=== PATIENT | male | born 1955 | race Caucasian/White ===

== ENCOUNTER 2016-05-30 14:52 | Outpatient (CLI) ==
[2016-05-30 15:11] LABS: HEMATOCRIT 28.7 % (42.0-52.0); HEMOGLOBIN 9.1 g/dl (14.0-18.0)
--- NOTE | 2016-05-30 16:11 | DI ---
EXAM: PA and lateral views of the chest HISTORY: Lung transplant COMPARISON: Chest x-ray 03/06/2016 with numerous priors dating back to 12/08/2013 FINDINGS: The cardiomediastinal silhouette is normal with coronary stent in place. Central line is unchanged with ventral surgical wires stable. There is no pneumothorax or pleural effusion. There i s no consolidation, nodule or mass. There is mild hyperinflation with bibasilar scarring which is st able. Surgical suture lines are noted in the bilateral lung bases. Right axillary stent is unchang ed. The osseous structures are unremarkable. IMPRESSION: No acute cardiopulmonary process or significant interval change.
== END 2016-05-30 14:53 | disposition home or self-care (01) ==
LOC: RAD 14:52
PROVIDERS: ATTEND Internal Medicine Pulmonary Disease
DX: Z94.2 Lung transplant status (principal); T86.819 Unspecified complication of lung transplant; N28.9 Disorder of kidney and ureter, unspecified
CPT/HCPCS: 36415; 85014; 85018

== ENCOUNTER 2016-06-11 09:49 | Outpatient (CLI) ==
[2016-06-11 10:32] LABS: CHOL/HDL RATIO 3.2 (4.5-6.4)
== END 2016-06-11 09:50 | disposition home or self-care (01) ==
LOC: LAB 09:49
PROVIDERS: ATTEND Internal Medicine Cardiovascular Disease
DX: E78.5 Hyperlipidemia, unspecified (principal); I10 Essential (primary) hypertension
CPT/HCPCS: 36415; 80061

== ENCOUNTER 2016-06-29 09:33 | Outpatient (CLI) ==
[2016-06-29 09:41] LABS: HEMATOCRIT 22.1 % (42.0-52.0); HEMOGLOBIN 7.4 g/dl (14.0-18.0)
== END 2016-06-29 09:34 | disposition home or self-care (01) ==
LOC: NONPT 09:33
PROVIDERS: ATTEND Internal Medicine Nephrology
DX: N18.9 Chronic kidney disease, unspecified (principal); D63.1 Anemia in chronic kidney disease
CPT/HCPCS: 85014; 85018

== ENCOUNTER 2016-08-07 08:45 | Outpatient (CLI) ==
[2016-08-07 09:06] LABS: HEMATOCRIT 35.1 % (42.0-52.0); HEMOGLOBIN 10.8 g/dl (14.0-18.0); MEAN CORPUSCULAR HEMOGLOBIN 32.2 pg (27.0-31.0); MEAN CORPUSCULAR HGB CONC 30.8 (31.8-35.4); MEAN CORPUSCULAR VOLUME 104.8 fl (80.0-94.0); PLATELET COUNT 174 10^3/uL (140-440); RED BLOOD COUNT 3.35 10^6/ul (4.70-6.10); WHITE BLOOD COUNT 11.24 K/ul (4.2-10.2)
[2016-08-07 09:22] LABS: ANISOCYTOSIS 1+ (NOT PRESENT)
[2016-08-07 09:35] LABS: ALBUMIN 3.8 g/dL (3.4-5.0); ALBUMIN/GLOBULIN RATIO 1.12; ANION GAP 17.2; BILIRUBIN,TOTAL 0.59 mg/dL (0.00-1.20); BUN/CREATININE RATIO 38.04; CALCIUM 9.7 mg/dL (8.2-10.2); CREATININE 0.92 mg/dL (0.60-1.10); POTASSIUM 5.2 mmol/L (3.5-5.1); TOTAL PROTEIN 7.2 g/dL (5.8-8.1)
== END 2016-08-07 08:46 | disposition home or self-care (01) ==
LOC: LAB 08:45
PROVIDERS: ATTEND Internal Medicine Nephrology
DX: Z94.0 Kidney transplant status (principal); Z79.899 Other long term (current) drug therapy; E78.5 Hyperlipidemia, unspecified
CPT/HCPCS: 36415; 80053; 80061; 80197; 84100; 85007; 85025

== ENCOUNTER 2016-08-13 08:15 | Outpatient (CLI) ==
[2016-08-13 08:36] LABS: HEMATOCRIT 32.2 % (42.0-52.0); HEMOGLOBIN 10.3 g/dl (14.0-18.0); MEAN CORPUSCULAR HEMOGLOBIN 32.8 pg (27.0-31.0); MEAN CORPUSCULAR VOLUME 102.5 fl (80.0-94.0); PLATELET COUNT 185 10^3/uL (140-440); RED BLOOD COUNT 3.14 10^6/ul (4.70-6.10); WHITE BLOOD COUNT 12.31 K/ul (4.2-10.2)
[2016-08-13 08:52] LABS: ANISOCYTOSIS NOT PRESENT (NOT PRESENT)
[2016-08-13 08:53] LABS: ALBUMIN 3.6 g/dL (3.4-5.0); ANION GAP 15.1; CALCIUM 10.1 mg/dL (8.2-10.2); CREATININE 0.88 mg/dL (0.60-1.10); PHOSPHORUS 3.6 mg/dL (2.3-3.7); POTASSIUM 4.1 mmol/L (3.5-5.1)
== END 2016-08-13 08:16 | disposition home or self-care (01) ==
LOC: LAB 08:15
PROVIDERS: ATTEND Internal Medicine Nephrology
DX: Z94.0 Kidney transplant status (principal); Z79.899 Other long term (current) drug therapy; E78.5 Hyperlipidemia, unspecified
CPT/HCPCS: 36415; 80069; 80197; 85007; 85025; 87799

== ENCOUNTER 2016-08-27 07:28 | Outpatient (CLI) | payer OTHER ==
[2016-08-27 07:45] LABS: BASOPHILS # (AUTO) 0.1 K/uL (0-0.2); BASOPHILS % (AUTO) 0.7 % (0.0-3.0); EOSINOPHILS # (AUTO) 0.1 K/ul (0.0-0.7); EOSINOPHILS % (AUTO) 1.1 % (0.0-7.0); HEMATOCRIT 35.6 % (42.0-52.0); HEMOGLOBIN 11.5 g/dl (14.0-18.0); IMMATURE GRANULOCYTE % (AUTO) 5.1 % (0.0-5.0); LYMPHOCYTES # (AUTO) 0.6 K/uL (0.60-3.4); LYMPHOCYTES % (AUTO) 4.9 (10.0-50.0); MEAN CORPUSCULAR HEMOGLOBIN 33.6 pg (27.0-31.0); MEAN CORPUSCULAR HGB CONC 32.3 (31.8-35.4); MEAN CORPUSCULAR VOLUME 104.1 fl (80.0-94.0); MONOCYTES # (AUTO) 1.2 K/uL (0.4-2.0); MONOCYTES % (AUTO) 10.3 (0-10); NEUTROPHILS % (AUTO) 77.9; PLATELET COUNT 180 10^3/uL (140-440); RED BLOOD COUNT 3.42 10^6/ul (4.70-6.10); WHITE BLOOD COUNT 11.55 K/ul (4.2-10.2)
[2016-08-27 08:15] LABS: ALBUMIN 3.9 g/dL (3.4-5.0); ANION GAP 15.2; BUN/CREATININE RATIO 30.09; CALCIUM 9.6 mg/dL (8.2-10.2); CREATININE 1.03 mg/dL (0.60-1.10); PHOSPHORUS 3.6 mg/dL (2.3-3.7)
[2016-08-27 08:33] LABS: POTASSIUM 5.2 mmol/L (3.5-5.1)
== END 2016-08-27 07:29 | disposition home or self-care (01) ==
LOC: LAB 07:28
PROVIDERS: ATTEND Internal Medicine Nephrology
DX: Z94.0 Kidney transplant status (principal); Z79.899 Other long term (current) drug therapy; E78.5 Hyperlipidemia, unspecified
CPT/HCPCS: 36415; 80069; 80197; 85025

== ENCOUNTER 2016-09-03 08:04 | Outpatient (CLI) ==
[2016-09-03 08:19] LABS: HEMATOCRIT 34.9 % (42.0-52.0); HEMOGLOBIN 11.6 g/dl (14.0-18.0); MEAN CORPUSCULAR HEMOGLOBIN 34.3 pg (27.0-31.0); MEAN CORPUSCULAR HGB CONC 33.2 (31.8-35.4); MEAN CORPUSCULAR VOLUME 103.3 fl (80.0-94.0); PLATELET COUNT 187 10^3/uL (140-440); RED BLOOD COUNT 3.38 10^6/ul (4.70-6.10)
[2016-09-03 08:35] LABS: ALBUMIN 3.9 g/dL (3.4-5.0); ANION GAP 18.4; BUN/CREATININE RATIO 29.78; CALCIUM 9.6 mg/dL (8.2-10.2); CREATININE 0.94 mg/dL (0.60-1.10); PHOSPHORUS 3.7 mg/dL (2.3-3.7); POTASSIUM 5.4 mmol/L (3.5-5.1)
[2016-09-03 08:39] LABS: ANISOCYTOSIS NOT PRESENT (NOT PRESENT)
[2016-09-03 08:41] LABS: SPHEROCYTES 2+ (NOT PRESENT)
== END 2016-09-03 08:05 | disposition home or self-care (01) ==
LOC: LAB 08:04
PROVIDERS: ATTEND Internal Medicine Nephrology
DX: Z94.0 Kidney transplant status (principal); Z79.899 Other long term (current) drug therapy; E78.5 Hyperlipidemia, unspecified
CPT/HCPCS: 36415; 80069; 80197; 85007; 85025

== ENCOUNTER 2016-09-10 08:51 | Outpatient (CLI) | payer OTHER ==
[2016-09-10 09:23] LABS: BASOPHILS # (AUTO) 0.1 K/uL (0-0.2); BASOPHILS % (AUTO) 0.5 % (0.0-3.0); EOSINOPHILS # (AUTO) 0.1 K/ul (0.0-0.7); HEMATOCRIT 36.7 % (42.0-52.0); IMMATURE GRANULOCYTE % (AUTO) 4.1 % (0.0-5.0); LYMPHOCYTES # (AUTO) 0.4 K/uL (0.60-3.4); LYMPHOCYTES % (AUTO) 4.4 (10.0-50.0); MEAN CORPUSCULAR HEMOGLOBIN 33.9 pg (27.0-31.0); MEAN CORPUSCULAR HGB CONC 32.7 (31.8-35.4); MEAN CORPUSCULAR VOLUME 103.7 fl (80.0-94.0); MONOCYTES # (AUTO) 1.1 K/uL (0.4-2.0); MONOCYTES % (AUTO) 10.8 (0-10); NEUTROPHILS # (AUTO) 7.8 K/ul (2.0-6.9); NEUTROPHILS % (AUTO) 79.2; PLATELET COUNT 162 10^3/uL (140-440); RED BLOOD COUNT 3.54 10^6/ul (4.70-6.10)
[2016-09-10 09:40] LABS: ALBUMIN 3.9 g/dL (3.4-5.0); ANION GAP 14.2; BUN/CREATININE RATIO 31.03; CALCIUM 9.9 mg/dL (8.2-10.2); CREATININE 0.87 mg/dL (0.60-1.10); PHOSPHORUS 3.9 mg/dL (2.3-3.7); POTASSIUM 4.2 mmol/L (3.5-5.1)
== END 2016-09-10 08:52 | disposition home or self-care (01) ==
LOC: LAB 08:51
PROVIDERS: ATTEND Internal Medicine Nephrology
DX: Z94.0 Kidney transplant status (principal); Z79.899 Other long term (current) drug therapy; E78.5 Hyperlipidemia, unspecified
CPT/HCPCS: 36415; 80069; 80197; 85025

== ENCOUNTER 2016-09-19 09:05 | Outpatient (CLI) | payer OTHER ==
[2016-09-19 09:35] LABS: BASOPHILS # (AUTO) 0.1 K/uL (0-0.2); BASOPHILS % (AUTO) 0.6 % (0.0-3.0); EOSINOPHILS # (AUTO) 0.1 K/ul (0.0-0.7); EOSINOPHILS % (AUTO) 1.3 % (0.0-7.0); HEMATOCRIT 38.3 % (42.0-52.0); HEMOGLOBIN 12.5 g/dl (14.0-18.0); IMMATURE GRANULOCYTE % (AUTO) 4.6 % (0.0-5.0); LYMPHOCYTES # (AUTO) 0.4 K/uL (0.60-3.4); LYMPHOCYTES % (AUTO) 4.2 (10.0-50.0); MEAN CORPUSCULAR HEMOGLOBIN 34.3 pg (27.0-31.0); MEAN CORPUSCULAR HGB CONC 32.6 (31.8-35.4); MEAN CORPUSCULAR VOLUME 105.2 fl (80.0-94.0); MONOCYTES # (AUTO) 0.8 K/uL (0.4-2.0); MONOCYTES % (AUTO) 9.5 (0-10); NEUTROPHILS # (AUTO) 6.9 K/ul (2.0-6.9); NEUTROPHILS % (AUTO) 79.8; PLATELET COUNT 176 10^3/uL (140-440); RED BLOOD COUNT 3.64 10^6/ul (4.70-6.10); WHITE BLOOD COUNT 8.61 K/ul (4.2-10.2)
[2016-09-19 09:55] LABS: ALBUMIN 4.1 g/dL (3.4-5.0); ANION GAP 12.6; BUN/CREATININE RATIO 22.72; CREATININE 0.88 mg/dL (0.60-1.10); PHOSPHORUS 3.3 mg/dL (2.3-3.7); POTASSIUM 4.6 mmol/L (3.5-5.1)
== END 2016-09-19 09:06 | disposition home or self-care (01) ==
LOC: LAB 09:05
PROVIDERS: ATTEND Internal Medicine Nephrology
DX: Z94.0 Kidney transplant status (principal); Z79.899 Other long term (current) drug therapy; E78.5 Hyperlipidemia, unspecified
CPT/HCPCS: 36415; 80069; 80197; 85025; 87799

== ENCOUNTER 2016-09-24 08:37 | Outpatient (CLI) | payer OTHER ==
[2016-09-24 08:54] LABS: BASOPHILS % (AUTO) 0.4 % (0.0-3.0); EOSINOPHILS # (AUTO) 0.1 K/ul (0.0-0.7); EOSINOPHILS % (AUTO) 1.3 % (0.0-7.0); HEMATOCRIT 39.1 % (42.0-52.0); HEMOGLOBIN 12.8 g/dl (14.0-18.0); LYMPHOCYTES # (AUTO) 0.4 K/uL (0.60-3.4); LYMPHOCYTES % (AUTO) 4.5 (10.0-50.0); MEAN CORPUSCULAR HEMOGLOBIN 34.5 pg (27.0-31.0); MEAN CORPUSCULAR HGB CONC 32.7 (31.8-35.4); MEAN CORPUSCULAR VOLUME 105.4 fl (80.0-94.0); MONOCYTES # (AUTO) 0.8 K/uL (0.4-2.0); MONOCYTES % (AUTO) 8.5 (0-10); NEUTROPHILS % (AUTO) 81.3; PLATELET COUNT 169 10^3/uL (140-440); RED BLOOD COUNT 3.71 10^6/ul (4.70-6.10); WHITE BLOOD COUNT 9.78 K/ul (4.2-10.2)
[2016-09-24 09:13] LABS: ALBUMIN 4.1 g/dL (3.4-5.0); ANION GAP 13.8; BUN/CREATININE RATIO 26.88; CALCIUM 10.3 mg/dL (8.2-10.2); CREATININE 0.93 mg/dL (0.60-1.10); PHOSPHORUS 3.7 mg/dL (2.3-3.7); POTASSIUM 4.8 mmol/L (3.5-5.1)
== END 2016-09-24 08:38 | disposition home or self-care (01) ==
LOC: LAB 08:37
PROVIDERS: ATTEND Internal Medicine Nephrology
DX: Z94.0 Kidney transplant status (principal); Z79.899 Other long term (current) drug therapy; E78.5 Hyperlipidemia, unspecified
CPT/HCPCS: 36415; 80069; 80197; 85025

== ENCOUNTER 2016-10-01 08:08 | Outpatient (CLI) | payer OTHER ==
[2016-10-01 08:28] LABS: BASOPHILS # (AUTO) 0.1 K/uL (0-0.2); BASOPHILS % (AUTO) 0.8 % (0.0-3.0); EOSINOPHILS # (AUTO) 0.1 K/ul (0.0-0.7); EOSINOPHILS % (AUTO) 1.5 % (0.0-7.0); HEMATOCRIT 39.1 % (42.0-52.0); IMMATURE GRANULOCYTE % (AUTO) 5.1 % (0.0-5.0); LYMPHOCYTES # (AUTO) 0.5 K/uL (0.60-3.4); LYMPHOCYTES % (AUTO) 5.3 (10.0-50.0); MEAN CORPUSCULAR HEMOGLOBIN 34.8 pg (27.0-31.0); MEAN CORPUSCULAR HGB CONC 33.2 (31.8-35.4); MEAN CORPUSCULAR VOLUME 104.5 fl (80.0-94.0); NEUTROPHILS # (AUTO) 7.4 K/ul (2.0-6.9); NEUTROPHILS % (AUTO) 77.3; PLATELET COUNT 177 10^3/uL (140-440); RED BLOOD COUNT 3.74 10^6/ul (4.70-6.10)
[2016-10-01 08:43] LABS: ALBUMIN 4.1 g/dL (3.4-5.0); ANION GAP 15.2; BUN/CREATININE RATIO 26.73; CALCIUM 10.1 mg/dL (8.2-10.2); CREATININE 1.01 mg/dL (0.60-1.10); PHOSPHORUS 3.2 mg/dL (2.3-3.7); POTASSIUM 4.2 mmol/L (3.5-5.1)
== END 2016-10-01 08:09 | disposition home or self-care (01) ==
LOC: LAB 08:08
PROVIDERS: ATTEND Internal Medicine Nephrology
DX: Z94.0 Kidney transplant status (principal); Z79.899 Other long term (current) drug therapy; E78.5 Hyperlipidemia, unspecified
CPT/HCPCS: 36415; 80069; 80197; 85025

== ENCOUNTER 2016-10-15 08:00 | Outpatient (CLI) ==
[2016-10-15 08:18] LABS: BASOPHILS # (AUTO) 0.1 K/uL (0-0.2); BASOPHILS % (AUTO) 0.6 % (0.0-3.0); EOSINOPHILS # (AUTO) 0.1 K/ul (0.0-0.7); EOSINOPHILS % (AUTO) 1.6 % (0.0-7.0); HEMATOCRIT 40.2 % (42.0-52.0); HEMOGLOBIN 13.3 g/dl (14.0-18.0); IMMATURE GRANULOCYTE % (AUTO) 3.2 % (0.0-5.0); LYMPHOCYTES # (AUTO) 0.4 K/uL (0.60-3.4); LYMPHOCYTES % (AUTO) 4.1 (10.0-50.0); MEAN CORPUSCULAR HEMOGLOBIN 34.8 pg (27.0-31.0); MEAN CORPUSCULAR HGB CONC 33.1 (31.8-35.4); MEAN CORPUSCULAR VOLUME 105.2 fl (80.0-94.0); MONOCYTES # (AUTO) 0.9 K/uL (0.4-2.0); NEUTROPHILS # (AUTO) 7.1 K/ul (2.0-6.9); NEUTROPHILS % (AUTO) 80.5; PLATELET COUNT 160 10^3/uL (140-440); RED BLOOD COUNT 3.82 10^6/ul (4.70-6.10); WHITE BLOOD COUNT 8.84 K/ul (4.2-10.2)
[2016-10-15 08:42] LABS: ALBUMIN/GLOBULIN RATIO 1.33; BILIRUBIN,TOTAL 0.3 mg/dL (0.00-1.20); BUN/CREATININE RATIO 24.44; CALCIUM 9.8 mg/dL (8.2-10.2); CHOL/HDL RATIO 5.2 (4.5-6.4); CREATININE 0.9 mg/dL (0.60-1.10); PHOSPHORUS 3.5 mg/dL (2.3-3.7)
== END 2016-10-15 08:01 | disposition home or self-care (01) ==
LOC: LAB 08:00
PROVIDERS: ATTEND Internal Medicine Nephrology
DX: Z94.0 Kidney transplant status (principal); Z79.899 Other long term (current) drug therapy; E78.5 Hyperlipidemia, unspecified; E10.65 Type 1 diabetes mellitus with hyperglycemia
CPT/HCPCS: 36415; 80053; 80061; 80197; 83036; 84100; 85025; 87799

== ENCOUNTER 2016-10-29 07:52 | Outpatient (CLI) ==
[2016-10-29 08:09] LABS: BASOPHILS % (AUTO) 0.5 % (0.0-3.0); EOSINOPHILS # (AUTO) 0.1 K/ul (0.0-0.7); EOSINOPHILS % (AUTO) 1.4 % (0.0-7.0); HEMATOCRIT 39.4 % (42.0-52.0); HEMOGLOBIN 12.8 g/dl (14.0-18.0); IMMATURE GRANULOCYTE % (AUTO) 2.6 % (0.0-5.0); LYMPHOCYTES # (AUTO) 0.4 K/uL (0.60-3.4); LYMPHOCYTES % (AUTO) 4.3 (10.0-50.0); MEAN CORPUSCULAR HEMOGLOBIN 34.6 pg (27.0-31.0); MEAN CORPUSCULAR HGB CONC 32.5 (31.8-35.4); MEAN CORPUSCULAR VOLUME 106.5 fl (80.0-94.0); MONOCYTES # (AUTO) 0.9 K/uL (0.4-2.0); MONOCYTES % (AUTO) 10.2 (0-10); NEUTROPHILS # (AUTO) 6.8 K/ul (2.0-6.9); PLATELET COUNT 158 10^3/uL (140-440); WHITE BLOOD COUNT 8.37 K/ul (4.2-10.2)
[2016-10-29 08:31] LABS: ALBUMIN 3.7 g/dL (3.4-5.0); ANION GAP 15.2; BUN/CREATININE RATIO 23.33; CALCIUM 9.7 mg/dL (8.2-10.2); CHOL/HDL RATIO 4.6 (4.5-6.4); CREATININE 0.9 mg/dL (0.60-1.10); PHOSPHORUS 4.5 mg/dL (2.3-3.7); POTASSIUM 4.2 mmol/L (3.5-5.1)
== END 2016-10-29 07:53 | disposition home or self-care (01) ==
LOC: LAB 07:52
PROVIDERS: ATTEND Internal Medicine Nephrology
DX: Z94.0 Kidney transplant status (principal); Z79.899 Other long term (current) drug therapy; E78.5 Hyperlipidemia, unspecified; E10.65 Type 1 diabetes mellitus with hyperglycemia
CPT/HCPCS: 36415; 80061; 80069; 80197; 85025

== ENCOUNTER 2016-11-05 08:06 | Outpatient (CLI) ==
[2016-11-05 08:26] LABS: BASOPHILS # (AUTO) 0.1 K/uL (0-0.2); BASOPHILS % (AUTO) 0.6 % (0.0-3.0); EOSINOPHILS # (AUTO) 0.1 K/ul (0.0-0.7); EOSINOPHILS % (AUTO) 1.3 % (0.0-7.0); HEMOGLOBIN 13.2 g/dl (14.0-18.0); IMMATURE GRANULOCYTE % (AUTO) 3.8 % (0.0-5.0); LYMPHOCYTES # (AUTO) 0.3 K/uL (0.60-3.4); LYMPHOCYTES % (AUTO) 3.8 (10.0-50.0); MEAN CORPUSCULAR HEMOGLOBIN 34.9 pg (27.0-31.0); MEAN CORPUSCULAR VOLUME 105.8 fl (80.0-94.0); MONOCYTES # (AUTO) 0.8 K/uL (0.4-2.0); MONOCYTES % (AUTO) 10.1 (0-10); NEUTROPHILS # (AUTO) 6.7 K/ul (2.0-6.9); NEUTROPHILS % (AUTO) 80.4; PLATELET COUNT 158 10^3/uL (140-440); RED BLOOD COUNT 3.78 10^6/ul (4.70-6.10); WHITE BLOOD COUNT 8.34 K/ul (4.2-10.2)
[2016-11-05 08:44] LABS: ALBUMIN 3.9 g/dL (3.4-5.0); ANION GAP 16.4; CALCIUM 9.5 mg/dL (8.2-10.2); CREATININE 0.88 mg/dL (0.60-1.10); PHOSPHORUS 3.4 mg/dL (2.3-3.7); POTASSIUM 4.4 mmol/L (3.5-5.1)
== END 2016-11-05 08:07 | disposition home or self-care (01) ==
LOC: LAB 08:06
PROVIDERS: ATTEND Internal Medicine Nephrology
DX: Z94.0 Kidney transplant status (principal); Z79.899 Other long term (current) drug therapy; E78.5 Hyperlipidemia, unspecified; E10.65 Type 1 diabetes mellitus with hyperglycemia
CPT/HCPCS: 36415; 80069; 80197; 85025

== ENCOUNTER 2016-11-12 07:48 | Outpatient (CLI) ==
[2016-11-12 08:03] LABS: BASOPHILS # (AUTO) 0.1 K/uL (0-0.2); BASOPHILS % (AUTO) 0.6 % (0.0-3.0); EOSINOPHILS # (AUTO) 0.1 K/ul (0.0-0.7); EOSINOPHILS % (AUTO) 1.5 % (0.0-7.0); HEMOGLOBIN 13.2 g/dl (14.0-18.0); IMMATURE GRANULOCYTE % (AUTO) 2.6 % (0.0-5.0); LYMPHOCYTES # (AUTO) 0.4 K/uL (0.60-3.4); LYMPHOCYTES % (AUTO) 4.4 (10.0-50.0); MEAN CORPUSCULAR HEMOGLOBIN 34.7 pg (27.0-31.0); MEAN CORPUSCULAR VOLUME 105.3 fl (80.0-94.0); MONOCYTES # (AUTO) 1.1 K/uL (0.4-2.0); NEUTROPHILS # (AUTO) 7.3 K/ul (2.0-6.9); NEUTROPHILS % (AUTO) 78.9; PLATELET COUNT 174 10^3/uL (140-440); WHITE BLOOD COUNT 9.31 K/ul (4.2-10.2)
[2016-11-12 08:21] LABS: ALBUMIN 3.9 g/dL (3.4-5.0); ANION GAP 14.3; BUN/CREATININE RATIO 26.08; CALCIUM 9.7 mg/dL (8.2-10.2); CREATININE 0.92 mg/dL (0.60-1.10); PHOSPHORUS 3.5 mg/dL (2.3-3.7); POTASSIUM 4.3 mmol/L (3.5-5.1)
== END 2016-11-12 07:49 | disposition home or self-care (01) ==
LOC: LAB 07:48
PROVIDERS: ATTEND Internal Medicine Nephrology
DX: Z94.0 Kidney transplant status (principal); Z79.899 Other long term (current) drug therapy; E78.5 Hyperlipidemia, unspecified; E10.65 Type 1 diabetes mellitus with hyperglycemia
CPT/HCPCS: 36415; 80069; 80197; 85025

== ENCOUNTER 2016-12-04 07:50 | Outpatient (CLI) | payer OTHER ==
[2016-12-04 08:15] LABS: BASOPHILS % (AUTO) 0.5 % (0.0-3.0); EOSINOPHILS # (AUTO) 0.1 K/ul (0.0-0.7); EOSINOPHILS % (AUTO) 1.1 % (0.0-7.0); HEMOGLOBIN 12.5 g/dl (14.0-18.0); IMMATURE GRANULOCYTE % (AUTO) 2.5 % (0.0-5.0); LYMPHOCYTES # (AUTO) 0.4 K/uL (0.60-3.4); LYMPHOCYTES % (AUTO) 4.2 (10.0-50.0); MEAN CORPUSCULAR HEMOGLOBIN 34.3 pg (27.0-31.0); MEAN CORPUSCULAR HGB CONC 32.9 (31.8-35.4); MEAN CORPUSCULAR VOLUME 104.4 fl (80.0-94.0); MONOCYTES # (AUTO) 1.1 K/uL (0.4-2.0); MONOCYTES % (AUTO) 13.2 (0-10); NEUTROPHILS # (AUTO) 6.7 K/ul (2.0-6.9); NEUTROPHILS % (AUTO) 78.5; PLATELET COUNT 166 10^3/uL (140-440); RED BLOOD COUNT 3.64 10^6/ul (4.70-6.10); WHITE BLOOD COUNT 8.48 K/ul (4.2-10.2)
[2016-12-04 08:32] LABS: ALBUMIN 3.7 g/dL (3.4-5.0); ANION GAP 15.2; BUN/CREATININE RATIO 23.52; CALCIUM 9.7 mg/dL (8.2-10.2); CREATININE 0.85 mg/dL (0.60-1.10); PHOSPHORUS 3.5 mg/dL (2.3-3.7); POTASSIUM 5.2 mmol/L (3.5-5.1)
== END 2016-12-04 07:51 | disposition home or self-care (01) ==
LOC: LAB 07:50
PROVIDERS: ATTEND Internal Medicine Nephrology
DX: Z94.0 Kidney transplant status (principal); Z79.899 Other long term (current) drug therapy; E78.5 Hyperlipidemia, unspecified; E10.65 Type 1 diabetes mellitus with hyperglycemia
CPT/HCPCS: 36415; 80069; 80197; 85025

== ENCOUNTER 2016-12-18 07:55 | Outpatient (CLI) ==
[2016-12-18 08:46] LABS: BASOPHILS # (AUTO) 0.1 K/uL (0-0.2); BASOPHILS % (AUTO) 0.6 % (0.0-3.0); EOSINOPHILS # (AUTO) 0.1 K/ul (0.0-0.7); EOSINOPHILS % (AUTO) 1.6 % (0.0-7.0); HEMATOCRIT 39.3 % (42.0-52.0); HEMOGLOBIN 12.7 g/dl (14.0-18.0); IMMATURE GRANULOCYTE % (AUTO) 2.9 % (0.0-5.0); LYMPHOCYTES # (AUTO) 0.3 K/uL (0.60-3.4); LYMPHOCYTES % (AUTO) 3.9 (10.0-50.0); MEAN CORPUSCULAR HEMOGLOBIN 33.4 pg (27.0-31.0); MEAN CORPUSCULAR HGB CONC 32.3 (31.8-35.4); MEAN CORPUSCULAR VOLUME 103.4 fl (80.0-94.0); MONOCYTES # (AUTO) 0.9 K/uL (0.4-2.0); NEUTROPHILS # (AUTO) 6.8 K/ul (2.0-6.9); PLATELET COUNT 220 10^3/uL (140-440); WHITE BLOOD COUNT 8.54 K/ul (4.2-10.2)
[2016-12-18 08:51] LABS: ALBUMIN 3.9 g/dL (3.4-5.0); ANION GAP 17.3; BUN/CREATININE RATIO 27.36; CALCIUM 10.1 mg/dL (8.2-10.2); CREATININE 0.95 mg/dL (0.60-1.10); PHOSPHORUS 3.7 mg/dL (2.3-3.7); POTASSIUM 4.3 mmol/L (3.5-5.1)
== END 2016-12-18 07:56 | disposition home or self-care (01) ==
LOC: LAB 07:55
PROVIDERS: ATTEND Internal Medicine Nephrology
DX: Z94.0 Kidney transplant status (principal); Z79.899 Other long term (current) drug therapy; E78.5 Hyperlipidemia, unspecified; E10.65 Type 1 diabetes mellitus with hyperglycemia
CPT/HCPCS: 36415; 80069; 80197; 85025; 87799

== ENCOUNTER 2016-12-31 08:14 | Outpatient (CLI) ==
[2016-12-31 08:47] LABS: BASOPHILS % (AUTO) 0.3 % (0.0-3.0); EOSINOPHILS # (AUTO) 0.1 K/ul (0.0-0.7); EOSINOPHILS % (AUTO) 1.2 % (0.0-7.0); HEMATOCRIT 38.7 % (42.0-52.0); HEMOGLOBIN 12.7 g/dl (14.0-18.0); IMMATURE GRANULOCYTE % (AUTO) 3.5 % (0.0-5.0); LYMPHOCYTES # (AUTO) 0.3 K/uL (0.60-3.4); LYMPHOCYTES % (AUTO) 3.5 (10.0-50.0); MEAN CORPUSCULAR HGB CONC 32.8 (31.8-35.4); MEAN CORPUSCULAR VOLUME 103.8 fl (80.0-94.0); MONOCYTES # (AUTO) 0.9 K/uL (0.4-2.0); MONOCYTES % (AUTO) 10.4 (0-10); NEUTROPHILS # (AUTO) 7.2 K/ul (2.0-6.9); NEUTROPHILS % (AUTO) 81.1; PLATELET COUNT 181 10^3/uL (140-440); RED BLOOD COUNT 3.73 10^6/ul (4.70-6.10); WHITE BLOOD COUNT 8.88 K/ul (4.2-10.2)
[2016-12-31 09:02] LABS: ALBUMIN 3.7 g/dL (3.4-5.0); ANION GAP 11.7; BUN/CREATININE RATIO 23.95; CALCIUM 10.2 mg/dL (8.2-10.2); CREATININE 0.96 mg/dL (0.60-1.10); PHOSPHORUS 3.6 mg/dL (2.3-3.7); POTASSIUM 4.7 mmol/L (3.5-5.1)
== END 2016-12-31 08:15 | disposition home or self-care (01) ==
LOC: LAB 08:14
PROVIDERS: ATTEND Internal Medicine Nephrology
DX: Z94.0 Kidney transplant status (principal); Z79.899 Other long term (current) drug therapy; E78.5 Hyperlipidemia, unspecified; E10.65 Type 1 diabetes mellitus with hyperglycemia
CPT/HCPCS: 36415; 80069; 80197; 85025

== ENCOUNTER 2017-01-14 07:31 | Outpatient (CLI) | payer OTHER ==
[2017-01-14 08:40] LABS: BASOPHILS % (AUTO) 0.3 % (0.0-3.0); EOSINOPHILS # (AUTO) 0.1 K/ul (0.0-0.7); EOSINOPHILS % (AUTO) 1.5 % (0.0-7.0); HEMOGLOBIN 13.1 g/dl (14.0-18.0); LYMPHOCYTES # (AUTO) 0.4 K/uL (0.60-3.4); LYMPHOCYTES % (AUTO) 4.1 (10.0-50.0); MEAN CORPUSCULAR HEMOGLOBIN 34.1 pg (27.0-31.0); MEAN CORPUSCULAR HGB CONC 32.8 (31.8-35.4); MEAN CORPUSCULAR VOLUME 104.2 fl (80.0-94.0); MONOCYTES # (AUTO) 0.9 K/uL (0.4-2.0); MONOCYTES % (AUTO) 9.9 (0-10); NEUTROPHILS # (AUTO) 7.1 K/ul (2.0-6.9); NEUTROPHILS % (AUTO) 80.2; PLATELET COUNT 167 10^3/uL (140-440); RED BLOOD COUNT 3.84 10^6/ul (4.70-6.10); WHITE BLOOD COUNT 8.86 K/ul (4.2-10.2)
[2017-01-14 09:08] LABS: ALBUMIN 3.7 g/dL (3.4-5.0); ALBUMIN/GLOBULIN RATIO 1.19; ANION GAP 12.2; BILIRUBIN,TOTAL 0.44 mg/dL (0.00-1.20); BUN/CREATININE RATIO 25.31; CALCIUM 9.9 mg/dL (8.2-10.2); CHOL/HDL RATIO 4.9 (4.5-6.4); CREATININE 0.79 mg/dL (0.60-1.10); PHOSPHORUS 3.6 mg/dL (2.3-3.7); POTASSIUM 4.2 mmol/L (3.5-5.1); TOTAL PROTEIN 6.8 g/dL (5.8-8.1)
[2017-01-15 07:51] LABS: HEPATITIS B SURFACE ANTIBODY Non Reactive (.)
[2017-01-16 08:37] LABS: HEPATITIS C QUANTITATION HCV Not Detected IU/mL (.)
== END 2017-01-14 07:32 | disposition home or self-care (01) ==
LOC: LAB 07:31
PROVIDERS: ATTEND Internal Medicine Nephrology
DX: Z94.0 Kidney transplant status (principal); Z79.899 Other long term (current) drug therapy; Z11.59 Encounter for screening for other viral diseases; Z72.89 Other problems related to lifestyle; E10.65 Type 1 diabetes mellitus with hyperglycemia; E78.5 Hyperlipidemia, unspecified
CPT/HCPCS: 36415; 80053; 80061; 80197; 83036; 84100; 85025; 86701; 86706; 86803; 87340; 87522; 87799

== ENCOUNTER 2017-01-28 07:14 | Outpatient (CLI) ==
[2017-01-28 07:42] LABS: BASOPHILS % (AUTO) 0.5 % (0.0-3.0); EOSINOPHILS # (AUTO) 0.1 K/ul (0.0-0.7); EOSINOPHILS % (AUTO) 1.4 % (0.0-7.0); HEMATOCRIT 39.2 % (42.0-52.0); HEMOGLOBIN 12.9 g/dl (14.0-18.0); IMMATURE GRANULOCYTE % (AUTO) 2.9 % (0.0-5.0); LYMPHOCYTES # (AUTO) 0.4 K/uL (0.60-3.4); MEAN CORPUSCULAR HGB CONC 32.9 (31.8-35.4); MEAN CORPUSCULAR VOLUME 103.4 fl (80.0-94.0); MONOCYTES # (AUTO) 0.9 K/uL (0.4-2.0); MONOCYTES % (AUTO) 10.6 (0-10); NEUTROPHILS % (AUTO) 80.6; PLATELET COUNT 176 10^3/uL (140-440); RED BLOOD COUNT 3.79 10^6/ul (4.70-6.10); WHITE BLOOD COUNT 8.72 K/ul (4.2-10.2)
[2017-01-28 07:59] LABS: ALBUMIN 3.5 g/dL (3.4-5.0); ANION GAP 14.4; BUN/CREATININE RATIO 23.07; CALCIUM 9.6 mg/dL (8.2-10.2); CREATININE 1.17 mg/dL (0.60-1.10); PHOSPHORUS 3.1 mg/dL (2.3-3.7); POTASSIUM 4.4 mmol/L (3.5-5.1)
== END 2017-01-28 07:15 | disposition home or self-care (01) ==
LOC: LAB 07:14
PROVIDERS: ATTEND Internal Medicine Nephrology
DX: Z94.0 Kidney transplant status (principal); Z79.899 Other long term (current) drug therapy; E78.5 Hyperlipidemia, unspecified; E10.65 Type 1 diabetes mellitus with hyperglycemia
CPT/HCPCS: 36415; 80069; 80197; 85025

== ENCOUNTER 2017-02-08 07:59 | Outpatient (CLI) ==
[2017-02-08 08:35] LABS: BASOPHILS % (AUTO) 0.5 % (0.0-3.0); EOSINOPHILS # (AUTO) 0.1 K/ul (0.0-0.7); EOSINOPHILS % (AUTO) 1.3 % (0.0-7.0); HEMATOCRIT 39.8 % (42.0-52.0); HEMOGLOBIN 13.3 g/dl (14.0-18.0); IMMATURE GRANULOCYTE % (AUTO) 2.9 % (0.0-5.0); LYMPHOCYTES # (AUTO) 0.4 K/uL (0.60-3.4); LYMPHOCYTES % (AUTO) 4.7 (10.0-50.0); MEAN CORPUSCULAR HEMOGLOBIN 34.2 pg (27.0-31.0); MEAN CORPUSCULAR HGB CONC 33.4 (31.8-35.4); MEAN CORPUSCULAR VOLUME 102.3 fl (80.0-94.0); MONOCYTES # (AUTO) 0.9 K/uL (0.4-2.0); MONOCYTES % (AUTO) 11.1 (0-10); NEUTROPHILS # (AUTO) 6.3 K/ul (2.0-6.9); NEUTROPHILS % (AUTO) 79.5; PLATELET COUNT 165 10^3/uL (140-440); RED BLOOD COUNT 3.89 10^6/ul (4.70-6.10); WHITE BLOOD COUNT 7.87 K/ul (4.2-10.2)
[2017-02-08 08:50] LABS: ALBUMIN 3.7 g/dL (3.4-5.0); ANION GAP 12.4; BUN/CREATININE RATIO 21.49; CALCIUM 9.6 mg/dL (8.2-10.2); CREATININE 1.07 mg/dL (0.60-1.10); PHOSPHORUS 2.8 mg/dL (2.3-3.7); POTASSIUM 4.4 mmol/L (3.5-5.1)
== END 2017-02-08 08:00 | disposition home or self-care (01) ==
LOC: LAB 07:59
PROVIDERS: ATTEND Internal Medicine Nephrology
DX: Z94.0 Kidney transplant status (principal); Z79.899 Other long term (current) drug therapy; E78.5 Hyperlipidemia, unspecified; E10.65 Type 1 diabetes mellitus with hyperglycemia
CPT/HCPCS: 36415; 80069; 80197; 85025

== ENCOUNTER 2017-02-25 07:22 | Outpatient (CLI) ==
[2017-02-25 08:00] LABS: BASOPHILS % (AUTO) 0.5 % (0.0-3.0); EOSINOPHILS # (AUTO) 0.1 K/ul (0.0-0.7); EOSINOPHILS % (AUTO) 1.1 % (0.0-7.0); HEMOGLOBIN 13.1 g/dl (14.0-18.0); IMMATURE GRANULOCYTE % (AUTO) 2.6 % (0.0-5.0); LYMPHOCYTES # (AUTO) 0.4 K/uL (0.60-3.4); LYMPHOCYTES % (AUTO) 4.2 (10.0-50.0); MEAN CORPUSCULAR HGB CONC 32.8 (31.8-35.4); MEAN CORPUSCULAR VOLUME 103.9 fl (80.0-94.0); MONOCYTES % (AUTO) 10.9 (0-10); NEUTROPHILS # (AUTO) 7.1 K/ul (2.0-6.9); NEUTROPHILS % (AUTO) 80.7; PLATELET COUNT 151 10^3/uL (140-440); RED BLOOD COUNT 3.85 10^6/ul (4.70-6.10); WHITE BLOOD COUNT 8.77 K/ul (4.2-10.2)
[2017-02-25 08:16] LABS: ALBUMIN 3.5 g/dL (3.4-5.0); ANION GAP 12.5; BUN/CREATININE RATIO 28.57; CALCIUM 9.5 mg/dL (8.2-10.2); CREATININE 0.98 mg/dL (0.60-1.10); PHOSPHORUS 3.5 mg/dL (2.3-3.7); POTASSIUM 4.5 mmol/L (3.5-5.1)
== END 2017-02-25 07:23 | disposition home or self-care (01) ==
LOC: LAB 07:22
PROVIDERS: ATTEND Internal Medicine Nephrology
DX: Z94.0 Kidney transplant status (principal); Z79.899 Other long term (current) drug therapy; E78.5 Hyperlipidemia, unspecified; E10.65 Type 1 diabetes mellitus with hyperglycemia
CPT/HCPCS: 36415; 80069; 80197; 85025; 87799

== ENCOUNTER 2017-03-05 08:19 | Outpatient (CLI) ==
[2017-03-05 08:39] LABS: BASOPHILS % (AUTO) 0.3 % (0.0-3.0); EOSINOPHILS # (AUTO) 0.1 K/ul (0.0-0.7); EOSINOPHILS % (AUTO) 1.5 % (0.0-7.0); HEMATOCRIT 41.8 % (42.0-52.0); IMMATURE GRANULOCYTE % (AUTO) 2.2 % (0.0-5.0); LYMPHOCYTES # (AUTO) 0.3 K/uL (0.60-3.4); LYMPHOCYTES % (AUTO) 3.8 (10.0-50.0); MEAN CORPUSCULAR HEMOGLOBIN 34.1 pg (27.0-31.0); MEAN CORPUSCULAR HGB CONC 33.5 (31.8-35.4); MONOCYTES % (AUTO) 10.8 (0-10); NEUTROPHILS # (AUTO) 7.1 K/ul (2.0-6.9); NEUTROPHILS % (AUTO) 81.4; PLATELET COUNT 161 10^3/uL (140-440); WHITE BLOOD COUNT 8.77 K/ul (4.2-10.2)
[2017-03-05 08:58] LABS: ALBUMIN 3.8 g/dL (3.4-5.0); ALBUMIN/GLOBULIN RATIO 1.15; BILIRUBIN,TOTAL 0.42 mg/dL (0.00-1.20); BUN/CREATININE RATIO 18.27; CALCIUM 9.9 mg/dL (8.2-10.2); CREATININE 0.93 mg/dL (0.60-1.10); TOTAL PROTEIN 7.1 g/dL (5.8-8.1)
== END 2017-03-05 08:20 | disposition home or self-care (01) ==
LOC: LAB 08:19
PROVIDERS: ATTEND Internal Medicine Pulmonary Disease
DX: Z94.2 Lung transplant status (principal)
CPT/HCPCS: 36415; 80053; 80197; 85025

== ENCOUNTER 2017-03-25 07:37 | Outpatient (CLI) ==
[2017-03-25 07:53] LABS: BASOPHILS % (AUTO) 0.5 % (0.0-3.0); EOSINOPHILS # (AUTO) 0.1 K/ul (0.0-0.7); EOSINOPHILS % (AUTO) 1.5 % (0.0-7.0); HEMATOCRIT 40.4 % (42.0-52.0); HEMOGLOBIN 13.3 g/dl (14.0-18.0); IMMATURE GRANULOCYTE % (AUTO) 2.4 % (0.0-5.0); LYMPHOCYTES # (AUTO) 0.4 K/uL (0.60-3.4); LYMPHOCYTES % (AUTO) 4.2 (10.0-50.0); MEAN CORPUSCULAR HEMOGLOBIN 33.9 pg (27.0-31.0); MEAN CORPUSCULAR HGB CONC 32.9 (31.8-35.4); MEAN CORPUSCULAR VOLUME 103.1 fl (80.0-94.0); NEUTROPHILS # (AUTO) 7.1 K/ul (2.0-6.9); NEUTROPHILS % (AUTO) 80.4; PLATELET COUNT 174 10^3/uL (140-440); RED BLOOD COUNT 3.92 10^6/ul (4.70-6.10); WHITE BLOOD COUNT 8.82 K/ul (4.2-10.2)
[2017-03-25 08:11] LABS: ALBUMIN 3.5 g/dL (3.4-5.0); ANION GAP 14.2; BUN/CREATININE RATIO 20.19; CALCIUM 9.4 mg/dL (8.2-10.2); CREATININE 1.04 mg/dL (0.60-1.10); PHOSPHORUS 3.4 mg/dL (2.3-3.7); POTASSIUM 4.2 mmol/L (3.5-5.1)
== END 2017-03-25 07:38 | disposition home or self-care (01) ==
LOC: LAB 07:37
PROVIDERS: ATTEND Internal Medicine Nephrology
DX: Z94.0 Kidney transplant status (principal); Z79.899 Other long term (current) drug therapy; E78.5 Hyperlipidemia, unspecified; E10.65 Type 1 diabetes mellitus with hyperglycemia
CPT/HCPCS: 36415; 80069; 80197; 85025; 87799

== ENCOUNTER 2017-04-09 08:47 | Outpatient (CLI) | payer OTHER ==
[2017-04-09 09:09] LABS: BASOPHILS % (AUTO) 0.4 % (0.0-3.0); EOSINOPHILS # (AUTO) 0.1 K/ul (0.0-0.7); EOSINOPHILS % (AUTO) 1.5 % (0.0-7.0); HEMATOCRIT 40.5 % (42.0-52.0); HEMOGLOBIN 13.4 g/dl (14.0-18.0); IMMATURE GRANULOCYTE % (AUTO) 1.8 % (0.0-5.0); LYMPHOCYTES # (AUTO) 0.4 K/uL (0.60-3.4); LYMPHOCYTES % (AUTO) 4.8 (10.0-50.0); MEAN CORPUSCULAR HEMOGLOBIN 33.7 pg (27.0-31.0); MEAN CORPUSCULAR HGB CONC 33.1 (31.8-35.4); MEAN CORPUSCULAR VOLUME 101.8 fl (80.0-94.0); MONOCYTES % (AUTO) 10.8 (0-10); NEUTROPHILS # (AUTO) 7.2 K/ul (2.0-6.9); NEUTROPHILS % (AUTO) 80.7; PLATELET COUNT 149 10^3/uL (140-440); RED BLOOD COUNT 3.98 10^6/ul (4.70-6.10); WHITE BLOOD COUNT 8.95 K/ul (4.2-10.2)
[2017-04-09 09:43] LABS: ALBUMIN 3.6 g/dL (3.4-5.0); ANION GAP 13.3; BUN/CREATININE RATIO 18.75; CALCIUM 9.3 mg/dL (8.2-10.2); CREATININE 0.96 mg/dL (0.60-1.10); PHOSPHORUS 2.9 mg/dL (2.3-3.7); POTASSIUM 4.3 mmol/L (3.5-5.1)
== END 2017-04-09 08:48 | disposition home or self-care (01) ==
LOC: LAB 08:47
PROVIDERS: ATTEND Internal Medicine Nephrology
DX: Z94.0 Kidney transplant status (principal); Z79.899 Other long term (current) drug therapy; E78.5 Hyperlipidemia, unspecified; E10.65 Type 1 diabetes mellitus with hyperglycemia
CPT/HCPCS: 36415; 80069; 80197; 85025

== ENCOUNTER 2017-04-22 07:57 | Outpatient (CLI) | END 2017-04-22 07:58 | disposition home or self-care (01) | LOC: LAB 07:57 | PROVIDERS: ATTEND Internal Medicine Nephrology | DX: Z94.0 Kidney transplant status (principal); Z79.899 Other long term (current) drug therapy; E78.5 Hyperlipidemia, unspecified; E10.65 Type 1 diabetes mellitus with hyperglycemia | CPT/HCPCS: 36415; 80053; 80061; 80197; 83036; 84100; 85025 ==

== ENCOUNTER 2017-05-06 09:04 | Outpatient (CLI) | END 2017-05-06 09:05 | disposition home or self-care (01) | LOC: LAB 09:04 | PROVIDERS: ATTEND Internal Medicine Nephrology | DX: Z94.0 Kidney transplant status (principal); Z79.899 Other long term (current) drug therapy; E78.5 Hyperlipidemia, unspecified; E10.65 Type 1 diabetes mellitus with hyperglycemia | CPT/HCPCS: 36415; 80069; 80197; 85025 ==

== ENCOUNTER 2017-05-20 07:42 | Outpatient (CLI) | END 2017-05-20 07:43 | disposition home or self-care (01) | LOC: LAB 07:42 | PROVIDERS: ATTEND Internal Medicine Nephrology | DX: Z94.0 Kidney transplant status (principal); Z79.899 Other long term (current) drug therapy; E78.5 Hyperlipidemia, unspecified; E10.65 Type 1 diabetes mellitus with hyperglycemia | CPT/HCPCS: 36415; 80069; 80197; 85025; 87799 ==

== ENCOUNTER 2017-07-01 08:23 | Outpatient (CLI) | END 2017-07-01 08:24 | disposition home or self-care (01) | LOC: LAB 08:23 | PROVIDERS: ATTEND Internal Medicine Nephrology | DX: Z94.0 Kidney transplant status (principal); Z79.899 Other long term (current) drug therapy; E78.5 Hyperlipidemia, unspecified; E10.65 Type 1 diabetes mellitus with hyperglycemia; R53.83 Other fatigue | CPT/HCPCS: 36415; 80069; 80197; 85025; 86701; 86704; 86705; 86706; 86803; 87340; 87522 ==

== ENCOUNTER 2017-07-29 08:28 | Outpatient (CLI) | payer OTHER | END 2017-07-29 08:29 | disposition home or self-care (01) | LOC: LAB 08:28 | PROVIDERS: ATTEND Internal Medicine Nephrology | DX: Z94.0 Kidney transplant status (principal); Z79.899 Other long term (current) drug therapy; E78.5 Hyperlipidemia, unspecified; E10.65 Type 1 diabetes mellitus with hyperglycemia | CPT/HCPCS: 36415; 80069; 80197; 85025 ==

== ENCOUNTER 2017-09-30 07:52 | Outpatient (CLI) | END 2017-09-30 07:53 | disposition home or self-care (01) | LOC: LAB 07:52 | PROVIDERS: ATTEND Internal Medicine Nephrology | DX: Z94.0 Kidney transplant status (principal); Z79.899 Other long term (current) drug therapy; E78.5 Hyperlipidemia, unspecified; E10.65 Type 1 diabetes mellitus with hyperglycemia; N41.9 Inflammatory disease of prostate, unspecified; I25.10 Atherosclerotic heart disease of native coronary artery without angina pectoris; N18.5 Chronic kidney disease, stage 5; I10 Essential (primary) hypertension; R09.02 Hypoxemia; E78.4 Other hyperlipidemia; I73.9 Peripheral vascular disease, unspecified; Z68.21 Body mass index [BMI] 21.0-21.9, adult | CPT/HCPCS: 36415; 80053; 80061; 80197; 84100; 84153; 85025 ==

== ENCOUNTER 2017-10-29 07:23 | Outpatient (CLI) | END 2017-10-29 07:24 | disposition home or self-care (01) | LOC: LAB 07:23 | PROVIDERS: ATTEND Internal Medicine Nephrology | DX: Z94.0 Kidney transplant status (principal); Z79.899 Other long term (current) drug therapy; E78.5 Hyperlipidemia, unspecified; E10.65 Type 1 diabetes mellitus with hyperglycemia | CPT/HCPCS: 36415; 80053; 80061; 80197; 83036; 84100; 85025 ==

== ENCOUNTER 2017-12-30 07:34 | Outpatient (CLI) | END 2017-12-30 07:35 | disposition home or self-care (01) | LOC: LAB 07:34 | PROVIDERS: ATTEND Internal Medicine Nephrology | DX: Z94.0 Kidney transplant status (principal); Z79.899 Other long term (current) drug therapy; E78.5 Hyperlipidemia, unspecified; E10.65 Type 1 diabetes mellitus with hyperglycemia | CPT/HCPCS: 36415; 80069; 80197; 85025 ==

== ENCOUNTER 2018-01-27 07:07 | Outpatient (CLI) | END 2018-01-27 07:08 | disposition home or self-care (01) | LOC: LAB 07:07 | PROVIDERS: ATTEND Internal Medicine Nephrology | DX: Z94.0 Kidney transplant status (principal); Z79.899 Other long term (current) drug therapy; E78.5 Hyperlipidemia, unspecified | CPT/HCPCS: 36415; 80053; 80061; 80197; 84100; 85025 ==

== ENCOUNTER 2018-04-28 08:01 | Outpatient (CLI) | payer OTHER | END 2018-04-28 08:02 | disposition home or self-care (01) | LOC: LAB 08:01 | PROVIDERS: ATTEND Internal Medicine Nephrology | DX: Z94.0 Kidney transplant status (principal); Z79.899 Other long term (current) drug therapy; E78.5 Hyperlipidemia, unspecified | CPT/HCPCS: 36415; 80053; 80061; 80197; 84100; 85025 ==

== ENCOUNTER 2018-06-30 08:28 | Outpatient (CLI) | payer OTHER | END 2018-06-30 08:29 | disposition home or self-care (01) | LOC: LAB 08:28 | PROVIDERS: ATTEND Internal Medicine Nephrology | DX: Z94.0 Kidney transplant status (principal); Z79.899 Other long term (current) drug therapy; E78.5 Hyperlipidemia, unspecified | CPT/HCPCS: 36415; 80053; 80061; 80197; 84100; 85025 ==

== ENCOUNTER 2018-07-28 08:02 | Outpatient (CLI) | payer OTHER | END 2018-07-28 08:03 | disposition home or self-care (01) | LOC: LAB 08:02 | PROVIDERS: ATTEND Internal Medicine Nephrology | DX: Z94.0 Kidney transplant status (principal); Z79.899 Other long term (current) drug therapy; E78.5 Hyperlipidemia, unspecified | CPT/HCPCS: 36415; 80053; 80061; 80197; 84100; 85025 ==

== ENCOUNTER 2018-09-09 07:38 | Outpatient (CLI) | END 2018-09-09 07:39 | disposition home or self-care (01) | LOC: LAB 07:38 | PROVIDERS: ATTEND Internal Medicine Nephrology | DX: Z94.0 Kidney transplant status (principal); Z79.899 Other long term (current) drug therapy; E78.5 Hyperlipidemia, unspecified; E10.29 Type 1 diabetes mellitus with other diabetic kidney complication; E10.65 Type 1 diabetes mellitus with hyperglycemia | CPT/HCPCS: 36415; 80053; 80061; 80197; 83036; 84100; 85025 ==

== ENCOUNTER 2018-09-18 07:11 | Outpatient (CLI) | payer OTHER | END 2018-09-18 07:12 | disposition home or self-care (01) | LOC: LAB 07:11 | PROVIDERS: ATTEND Internal Medicine Pulmonary Disease | DX: Z94.2 Lung transplant status (principal) | CPT/HCPCS: 36415; 80048; 80197 ==

== ENCOUNTER 2018-12-17 07:40 | Outpatient (CLI) | payer OTHER | END 2018-12-17 07:41 | disposition home or self-care (01) | LOC: EEVIPCON 07:40 → LAB 07:40 | PROVIDERS: ATTEND Internal Medicine Nephrology | DX: Z94.0 Kidney transplant status (principal); E78.5 Hyperlipidemia, unspecified; E10.29 Type 1 diabetes mellitus with other diabetic kidney complication; E10.65 Type 1 diabetes mellitus with hyperglycemia | CPT/HCPCS: 36415; 80069; 80197; 85008; 85025 ==